=== PATIENT | male | born 1975 | race Caucasian/White ===

== ENCOUNTER 2018-06-05 11:34 | Emergency (ER) | payer BC ==
[2018-06-05 13:02] LABS: ADD MAN DIFF? NO
[2018-06-05] MEDS: morphine 4 MG/ML VIAL IV (13:02)
[2018-06-05] MEDS: SOD CHLORIDE 0.9% 1,000 ML IV (13:02)
[2018-06-05] MEDS: ONDANSETRON 4 MG INJ IV (13:02)
[2018-06-05 13:08] LABS: BASOPHIL # 0.1 10^3/ul (0.0-0.1); BASOPHILS % 0.6 % (0.0-2.0); EOSINOPHILS # 0.1 10^3/ul (0.0-0.5); EOSINOPHILS % 0.6 % (0.0-7.0); HEMATOCRIT 43.5 % (42.0-52.0); HEMOGLOBIN 14.6 g/dl (14.0-18.0); LYMPHOCYTES # 0.9 10^3/ul (0.8-2.9); LYMPHOCYTES % 9.5 % (15.0-51.0); MEAN CORPUSCULAR HEMOGLOBIN 29.7 pg (29.0-33.0); MEAN CORPUSCULAR HGB CONC 33.6 g/dl (32.0-37.0); MEAN CORPUSCULAR VOLUME 88.6 fl (82.0-101.0); MEAN PLATELET VOLUME 9.7 fl (7.4-10.4); MONOCYTE # 0.5 10^3/ul (0.3-0.9); NEUTROPHIL # 7.5 10^3/ul (1.6-7.5); PLATELET COUNT 281 10^3/UL (140-415); RED BLOOD COUNT 4.91 10^6/ul (4.70-6.10); RED CELL DISTRIBUTION WIDTH 12.7 % (11.5-14.5)
[2018-06-05 13:24] LABS: ALANINE AMINOTRANSFERASE 42 IU/L (13-69); ALBUMIN 4.8 g/dl (3.3-4.9); ALBUMIN/GLOBULIN RATIO 1.41; ALKALINE PHOSPHATASE 76 IU/L (42-121); ANION GAP 15 (8-16); ASPARTATE AMINO TRANSFERASE 37 IU/L (15-46); BILIRUBIN,INDIRECT 0.7 mg/dl (0-1.1); BILIRUBIN,TOTAL 0.7 mg/dl (0.2-1.3); BLOOD UREA NITROGEN 15 mg/dl (7-20); CARBON DIOXIDE 26 mmol/L (21-31); CHLORIDE 107 mmol/L (97-110); CREATININE 1.31 mg/dl (0.61-1.24); GLUCOSE 116 mg/dl (70-220); LIPASE 82 U/L (23-300); POTASSIUM 4.4 mmol/L (3.5-5.1); SODIUM 144 mmol/L (135-144); TOTAL PROTEIN 8.2 g/dl (6.1-8.1)
[2018-06-05] MEDS: KETOROLAC 30 MG INJ IV (14:14)
[2018-06-05 14:28] LABS: ADD UMIC YES; UR ASCORBIC ACID NEGATIVE (NEGATIVE); UR BACTERIA FEW /HPF (NONE SEEN); UR BILIRUBIN (Dip) NEGATIVE (NEGATIVE); UR BLOOD (Dip) 3+ mg/dL (NEGATIVE); UR CLARITY SLIGHTLY CLOUDY (CLEAR); UR COLOR YELLOW (YELLOW); UR GLUCOSE (Dip) NEGATIVE (NEGATIVE); UR KETONES (Dip) TRACE mg/dL (NEGATIVE); UR LEUKOCYTE ESTERASE (Dip) NEGATIVE Leu/ul (NEGATIVE); UR MUCUS MODERATE /HPF (NONE SEEN); UR NITRITE (Dip) NEGATIVE (NEGATIVE); UR RBC > 182 /HPF (0-5); UR SPECIFIC GRAVITY (Dip) 1.023 (1.003-1.030); UR TOTAL PROTEIN (Dip) 2+ mg/dl (NEGATIVE); UR UROBILINOGEN (Dip) 2+ mg/dL (NEGATIVE); UR WBC 14 /HPF (0-5)
[2018-06-05] MEDS ORDERED: CLINDAMYCIN 900 MG/D5W (PMX) 50 ML IVPB (15:00)
== END 2018-06-05 15:19 | disposition home or self-care (01) ==
LOC: FTE 11:34
DX: N20.0 Calculus of kidney (principal)
CPT/HCPCS: 36415; 74176; 80053; 81001; 83690; 85025; 87086; 96361; 96374; 96375; 99285-25